=== PATIENT | female | born 1970 | race Caucasian/White ===

== ENCOUNTER 2017-08-13 10:18 | Outpatient (CLI) | payer OTHER ==
--- NOTE | 2017-09-08 11:11 | MMO ---
BILATERAL SCREENING MAMMOGRAMS: Date: 08/13/17 Prior outside films were unable to be obtained and therefore, there are no comparison studies. This patient's mammogram was interpreted with the assistance of computer-aided detection. FINDINGS: There are scattered fibroglandular densities. There are scattered benign-appearing calcifications. Patient gives a history of prior breast reduction. There is a large dense calcification seen in the p osterior upper right breast on MLO view only consistent with dystrophic calcification. Adjacent to th is calcification in the right MLO view is a focal parenchymal density measuring 5-6 mm. This is not a ppreciated on the CC projection. Recommend this be further evaluated with diagnostic exam. IMPRESSION: An asymmetric focal parenchymal density in the upper posterior right breast seen on MLO view only. Re commend diagnostic exam to include exaggerated CC views. BIRADS 0: Incomplete: Need Additional Imaging Evaluation and/or Prior Mammograms for Comparison The facility will notify the patient of the need for additional imaging services. POS: [facility]
== END 2017-08-13 10:19 | disposition home or self-care (01) ==
LOC: SCSMAMMO 10:18 → MAMMO 10:19
PROVIDERS: ATTEND Internal Medicine
DX: Z12.31 Encounter for screening mammogram for malignant neoplasm of breast (principal)
CPT/HCPCS: 77067; G0202

== ENCOUNTER 2017-09-11 09:21 | Outpatient (CLI) | payer OTHER ==
--- NOTE | 2017-09-11 10:05 | MMO ---
DIAGNOSTIC RIGHT MAMMOGRAMS: Date: 09/11/17 HISTORY: Patient returned for additional views of the right breast as recommended from the study of 08/13/17. FINDINGS: The questioned density in the upper right breast seen on the screening MLO view does not persist on a dditional views. No evidence of mass or distortion. Recommend patient be returned to routine follow-up. IMPRESSION: BIRADS 2: Benign Finding(s) POS: [facility]
== END 2017-09-11 09:22 | disposition home or self-care (01) ==
LOC: MAMMO 09:21
PROVIDERS: ATTEND Internal Medicine
DX: R92.2 Inconclusive mammogram (principal)
CPT/HCPCS: G0206-RT